=== PATIENT | male | born 1950 | race African-American/Black ===

== ENCOUNTER 2017-04-16 09:29 | Day surgery (SDC) | payer BC ==
[~2017-04-16] VITALS: Ht 176.5 cm; Wt 83.9 kg
[2017-04-16] VITALS (8 sets, daily range): BP systolic 119–146; BP diastolic 84–95
--- NOTE | 2017-04-16 07:47 | Anethesia Preoperative Eval ---
Anesthesia Pre-op PMH/ROS General Date of Evaluation: Apr 16, 2017 Time of Evaluation: 07:47 Anesthesiologist: dimitris ASA Score: ASA 3 Mallampati Score Class I : Soft palate, uvula, fauces, pillars visible Class II: Soft palate, uvula, fauces visible Class III: Soft palate, base of uvula visible Class IV: Only hard plate visible Mallampati Classification: Class II Surgeon: jennifer Diagnosis: elevated cea Surgical Procedure: egd/colonoscopy Family History: no anesthesia problems Allergies: Coded Allergies: No Known Allergies (Unverified , 04/16/17) Medications: see eMAR Past Medical History Cardiovascular: Reports: HTN, other - hyprcholestrolemia Anesthesia Pre-op Phys. Exam Physician Exam Last Vital Signs Date Time Temp Pulse Resp B/P (MAP) Pulse Ox O2 Delivery O2 Flow Rate FiO2 04/16/17 10:04 98.6 60 18 146/92 97 Room Air Constitutional: NAD Neurologic: CN 2-12 intact Cardiovascular: RRR Respiratory: CTA Gastrointestinal: S/NT/ND Airway Exam Mallampati Score: Class II MO: full Neck: supple TMD: 2fb ROM: full Teeth: intact Anesthesia Pre-op A/P Risk Assessment & Plan Assessment: asa3 Plan: mac Status Change Before Surgery: No Pre-Antibiotics Drug: JUAN PABLO Oglesby Apr 16, 2017 07:47
[2017-04-16] MEDS ORDERED: ATORVASTATIN CA20 MG ORAL (10:09)
[2017-04-16] MEDS ORDERED: CLONAZEPAM0.5 M1 PO (10:09)
[2017-04-16] MEDS ORDERED: ADALAT20 MG ORAL (10:09)
[2017-04-16] MEDS ORDERED: LISINOPRIL10 MG ORAL (10:09)
--- NOTE | 2017-04-16 11:26 | Short Stay Surgery H&P ---
History of Present Illness History of Present Illness Chief Complaint see recent consult note HPI Angelito Heck is a 67 year old male who was admitted on for Elevated Cea Patient History Allergies: Coded Allergies: No Known Allergies (Unverified , 04/16/17) PAST MEDICAL HISTORY: Past Surgeries: Social History: Medication History Scheduled Atorvastatin Calcium* (Atorvastatin Calcium*), 10 MG ORAL BEDTIME, (Reported) Clonazepam (Clonazepam), 0.5 MG PO NEEDED, (Reported) Lisinopril* (Lisinopril*), 10 MG ORAL DAILY, (Reported) Nifedipine (Nifedipine*), 30 MG ORAL BID, (Reported) Review of Systems Cardiovascular: Reports: no symptoms Respiratory: Reports: no symptoms Skeletal: Reports: no symptoms Gastrointestinal: Reports: no symptoms Genitourinary: Reports: no symptoms Neurologic: Reports: no symptoms Endocrine: Reports: no symptoms Physical Exam Vital Signs Last Vital Signs Date Time Temp Pulse Resp B/P (MAP) Pulse Ox O2 Delivery O2 Flow Rate FiO2 04/16/17 10:04 98.6 60 18 146/92 97 Room Air Skin: normal HENT: normal Heart: normal Lungs: normal Abdomen: normal Extremities: normal Plan Plan of Care esophagogastroduodenoscopy and colonoscopy Final Diagnosis: Attestation Are the patient's medical conditions optimized for surgery? Attestation Response: yes DAKOTAH DHALIWAL Apr 16, 2017 11:25
[2017-04-16] MEDS ORDERED: Atropine Inj 1mg/10ml Syr IV PRN (11:30)
[2017-04-16] MEDS ORDERED: Propofol 200mg/20ml IV ONE (11:30)
[2017-04-16] MEDS ORDERED: DiphenhydrAMINE 50mg/ml Inj IVP PRN (11:30)
[2017-04-16] MEDS ORDERED: Lidocaine 1% MPF 10mg/ml 5ml ONE (11:30)
[2017-04-16] MEDS ORDERED: Norco 5mg/325mg tab ORAL PRN (11:30)
[2017-04-16] MEDS ORDERED: ASPIRIN EC81 MG ORAL (11:37)
--- NOTE | 2017-04-16 12:11 | Endoscopy Procedure Note ---
Endoscopy Procedure Note Indication for Procedure: elevated CEA Procedures Performed: EGD, colonoscopy Operative Findings/Diagnosis: gastritis, colon polyp Specimen: yes Pt Tolerated Procedure Well: Yes Estimated Blood Loss: none Anesthesiologist: dimitris Anesthesia: MAC Implant(s) used?: No 50 yrs or older w/o bx or poly: No 10yrs. F/U not recommended: Yes If not recommended, why?: Above average risk 10 yrs. F/U needed: Yes 18 years or older w/prev. colo: No DAKOTAH DHALIWAL Apr 16, 2017 12:11
--- NOTE | 2017-04-16 13:19 | Immediate Post-Op Evaluation ---
Immediate Post-Op Evalulation Immediate Post-Op Evalulation Procedure: egd/colonoscopy Date of Evaluation: Apr 16, 2017 Time of Evaluation: 12:33 IV Fluids: 300ml 0.9ns Blood Products: none Estimated Blood Loss: negligible Blood Pressure Systolic: 128 Blood Pressure Diastolic: 85 Pulse Rate: 63 Respiratory Rate: 18 O2 Sat by Pulse Oximetry: 100 Temperature (Fahrenheit): 97.7 Pain Score (1-10): 0 Nausea: No Vomiting: No Complications none Patient Status: awake, reacts, patent Hydration Status: adequate Drug: JUAN PABLO Oglesby Apr 16, 2017 13:19
--- NOTE | 2017-04-16 13:21 | 48 Hour Post Anesthesia Eval ---
Post Anesthesia Evaluation Procedure: egd/colonoscopy Date of Evaluation: Apr 16, 2017 Time of Evaluation: 13:20 Blood Pressure Systolic: 145 0: 90 Pulse Rate: 51 Respiratory Rate: 18 Temperature (Fahrenheit): 97.7 O2 Sat by Pulse Oximetry: 100 Airway: patent Nausea: No Vomiting: No Pain Intensity: 0 Hydration Status: adequate Cardiopulmonary Status: stable Mental Status/LOC: patient returned to baseline Post-Anesthesia Complications: none Follow-up care needed: N/A JUAN PABLO RODRIGUEZ Apr 16, 2017 13:21
--- NOTE | 2017-04-16 18:00 | Procedure Note ---
DATE OF PROCEDURE: 04/16/2017 SURGEON: Saad Watkins M.D. PROCEDURE: Upper endoscopy with biopsy and colonoscopy with biopsy. ANESTHESIOLOGIST: Sravanthi Trammell M.D. INSTRUMENT: Olympus adult flexible upper endoscope and colonoscope. INDICATION: 1. Screening colonoscopy evaluation. 2. Elevated CEA. The procedure, risks, benefits, and possible consequences, including hemorrhage, aspiration, perforation and infection, and alternative treatments, were explained to the patient/legal guardian by Dr. Saad Watkins and the patient/legal guardian understood and accepted these risks. Description Of Procedure: After informed consent was obtained and the patient was adequately sedated, Olympus upper endoscope was advanced from mouth into the second portion of the duodenum and retroflexion was performed in the stomach. The patient had diffuse gastritis. Random biopsy from antrum was obtained to rule out H. pylori infection. At this time, the upper endoscope was retrieved and the patient was turned over for colonoscopy. First, a rectal exam was performed, which was normal. Then, the scope was advanced from the rectum into the cecum documented by appendiceal orifice, ileocecal valve, and right upper quadrant palpation. Quality of prep was very good. The patient had 1 polyp in the proximal ascending colon, measured roughly about 5 to 6 mm, removed with the cold biopsy forceps technique in the piecemeal fashion. The rest of examination was grossly within normal limits. No obvious other polyps were found. Retroflexion of rectum showed evidence of few small nonbleeding internal hemorrhoids. SUMMARY OF FINDINGS: 1. Gastritis, status post biopsy to rule out Helicobacter pylori infection. 2. One colonic polyp removed. See above for details. 3. Internal hemorrhoids. RECOMMENDATIONS: Follow up biopsies and treat accordingly. I want to thank Dr. Saad Calhoun for this kind referral. Saad Watkins M.D. DR: KIMO JOB#: [id number] CC: Saad Calhoun M.D.; Fax#: [phone]
--- NOTE | 2017-04-23 19:18 | Cardiology Report ---
APPROVED REPORT EKG Measurement Heart [id number] Sinus bradycardia Minimal voltage criteria for LVH, may be normal variant Nonspecific ST and T wave abnormality Abnormal ECG
== END 2017-04-16 14:05 | disposition home or self-care (01) ==
LOC: GAS 09:29
DX: Z12.11 Encounter for screening for malignant neoplasm of colon (principal); K29.50 Unspecified chronic gastritis without bleeding; R97.0 Elevated carcinoembryonic antigen [CEA]; K63.5 Polyp of colon; K64.8 Other hemorrhoids; I10 Essential (primary) hypertension
CPT/HCPCS: 43239; 45380; 93005; J2704; 94003; 94150

== ENCOUNTER 2017-11-01 15:08 | Outpatient (CLI) | payer BC ==
[~2017-11-01 15:08] MED LIST: ADALAT20 MG ORAL; ASPIRIN EC81 MG ORAL; ATORVASTATIN CA20 MG ORAL; CLONAZEPAM0.5 M1 PO; LISINOPRIL10 MG ORAL
== END 2017-11-01 15:40 | disposition home or self-care (01) ==
LOC: PAN 15:08
DX: B96.81 Helicobacter pylori [H. pylori] as the cause of diseases classified elsewhere (principal)
CPT/HCPCS: 83013